=== PATIENT | male | born 1985 | race Caucasian/White ===

== ENCOUNTER 2018-02-14 16:18 | Emergency (ER) | payer OTHER ==
[~2018-02-14] VITALS: Ht 175.3 cm; Wt 111.1 kg
== END 2018-02-14 18:56 | disposition home or self-care (01) ==
LOC: ER 16:18
DX: B34.9 Viral infection, unspecified (principal)

== ENCOUNTER 2019-07-29 20:29 | Emergency (ER) | payer OTHER ==
[~2019-07-29] VITALS: Ht 172.7 cm; Wt 122.5 kg
== END 2019-07-29 21:26 | disposition home or self-care (01) ==
LOC: ER 20:29
DX: H66.91 Otitis media, unspecified, right ear (principal)